=== PATIENT | female | born 1980 | race Caucasian/White ===

== ENCOUNTER 2017-07-26 18:45 | Emergency (ER) | payer BC ==
[2017-07-26 20:10] LABS: APPEARANCE CLEAR (CLEAR); BILIRUBIN NEGATIVE (NEGATIVE); COLOR YELLOW (YELLOW); GLUCOSE NEGATIVE (NEGATIVE); KETONE NEGATIVE (NEGATIVE); LEUKOCYTE ESTERASE NEGATIVE (NEGATIVE); NITRITE NEGATIVE (NEGATIVE); PROTEIN NEGATIVE (NEGATIVE); SPECIFIC GRAVITY 1.015 (1.005-1.020); UROBILINOGEN NORMAL (NORMAL)
[2017-07-26 20:12] LABS: UDS - AMPHET POSITIVE QUAL (NEGATIVE); UDS - BARB NEGATIVE QUAL (NEGATIVE); UDS - BENZO POSITIVE QUAL (NEGATIVE); UDS - COCAINE NEGATIVE QUAL (NEGATIVE); UDS - METH NEGATIVE QUAL (NEGATIVE); UDS - OPIATE NEGATIVE QUAL (NEGATIVE); UDS - PCP NEGATIVE QUAL (NEGATIVE); UDS - THC NEGATIVE QUAL (NEGATIVE)
[2017-07-26 21:35] LABS: HEMATOCRIT 34.8 % (36.0-48.0); HEMOGLOBIN 11.8 g/dL (12-16); MCH 31.5 pg (26.0-34.0); MCHC 33.9 g/dL (31.0-37.0); MCV 92.8 fL (80.0-100.0); MEAN PLATELET VOLUME 10.6 fL (7.4-10.4); PLATELET COUNT 193 10x3/uL (130-400); RBC 3.75 10x6/uL (4.00-5.40); RDW 16.8 % (11.5-14.5); WBC 4.7 10x3/uL (4.8-10.8)
[2017-07-26 21:44] LABS: HCG SERUM NEGATIVE (NEGATIVE)
[2017-07-26 21:46] LABS: ALKALINE PHOSPHATASE 119 U/L (46-116); ALT (SGPT) 101 U/L (10-68); BILIRUBIN - TOTAL 1.06 mg/dL (0.2-1.3); CALC OSMOLALITY 277 mosm/kg (275-300); CALCIUM 8.8 mg/dL (8.5-10.1); CARBON DIOXIDE 32.7 mmol/L (21.0-32.0); CHLORIDE - SERUM 106 mmol/L (98-107); CREATININE - SERUM 0.7 mg/dL (0.6-1.3); GLUCOSE 83 mg/dL (74-106); LIPASE 63 U/L (73-393); POTASSIUM - SERUM 4.9 mmol/L (3.5-5.1); PROTEIN - SERUM 6.8 g/dL (6.4-8.2); SODIUM 141 mmol/L (136-145); UREA NITROGEN 7 mg/dL (7-18); eGFR NON AFRICAN AMERICAN > 90 mL/min (90-120)
[2017-07-26 21:59] LABS: EOSINOPHILS 4 % (0-7); LYMPHOCYTES 56 % (15-50); NEUTROPHILS 40 % (40-80)
[2017-07-26 22:00] LABS: PLATELET ESTIMATE NORMAL
== END 2017-07-26 22:58 | disposition home or self-care (01) ==
LOC: D.ER 18:45
PROVIDERS: Physician Assistant
DX: R60.0 Localized edema (principal); R79.89 Other specified abnormal findings of blood chemistry; L98.1 Factitial dermatitis; F22 Delusional disorders; F17.200 Nicotine dependence, unspecified, uncomplicated

== ENCOUNTER 2019-01-23 15:26 | Emergency (ER) | payer MEDICAID ==
[~2019-01-23] VITALS: Ht 157.5 cm; Wt 54.5 kg
[2019-01-23 15:27] VITALS: BP 107/66; Ht 157.5 cm; Wt 54.5 kg
[2019-01-23 16:27] LABS: HCG SERUM NEGATIVE (NEGATIVE)
[2019-01-23 16:32] LABS: ALBUMIN 3.7 g/dL (3.4-5.0); ALKALINE PHOSPHATASE 54 U/L (46-116); ALT (SGPT) 21 U/L (10-68); BILIRUBIN - TOTAL 0.35 mg/dL (0.2-1.3); CALC OSMOLALITY 280 mosm/kg (275-300); CALCIUM 8.4 mg/dL (8.5-10.1); CARBON DIOXIDE 28.9 mmol/L (21.0-32.0); CHLORIDE - SERUM 104 mmol/L (98-107); CREATININE - SERUM 0.7 mg/dL (0.6-1.3); GLUCOSE 82 mg/dL (74-106); POTASSIUM - SERUM 3.3 mmol/L (3.5-5.1); PROTEIN - SERUM 7.3 g/dL (6.4-8.2); SODIUM 142 mmol/L (136-145); UREA NITROGEN 11 mg/dL (7-18); eGFR NON AFRICAN AMERICAN > 90 mL/min (90-120)
[2019-01-23 16:39] LABS: UDS - AMPHET POSITIVE QUAL (NEGATIVE); UDS - BARB NEGATIVE QUAL (NEGATIVE); UDS - BENZO NEGATIVE QUAL (NEGATIVE); UDS - COCAINE NEGATIVE QUAL (NEGATIVE); UDS - OPIATE NEGATIVE QUAL (NEGATIVE); UDS - PCP NEGATIVE QUAL (NEGATIVE); UDS - THC NEGATIVE QUAL (NEGATIVE)
[2019-01-23 17:13] LABS: APPEARANCE CLEAR (CLEAR); COLOR YELLOW (YELLOW)
[2019-01-23 17:14] LABS: BILIRUBIN NEGATIVE (NEGATIVE); GLUCOSE NEGATIVE (NEGATIVE); KETONE NEGATIVE (NEGATIVE); NITRITE POSITIVE (NEGATIVE); PROTEIN NEGATIVE (NEGATIVE); UROBILINOGEN NORMAL (NORMAL)
[2019-01-23 17:17] LABS: EPITHELIAL CELLS 0-5 /hpf (0-5); RED CELLS - URINE 0-5 /hpf (0-5)
[2019-01-23 17:18] LABS: BACTERIA MANY /hpf (NONE SEEN)
[2019-01-23 17:27] LABS: BASOPHILS 0.3 % (0-2); EOSINOPHILS 0.5 % (0-7); HEMATOCRIT 33.6 % (36.0-48.0); HEMOGLOBIN 11.5 g/dL (12-16); LYMPHOCYTES 48.4 % (15-50); MCH 29.3 pg (26.0-34.0); MCHC 34.2 g/dL (31.0-37.0); MCV 85.7 fL (80.0-100.0); MEAN PLATELET VOLUME 11.1 fL (7.4-10.4); MONOCYTES 12.1 % (2-11); NEUTROPHILS 38.7 % (40-80); PLATELET COUNT 209 10x3/uL (130-400); RBC 3.92 10x6/uL (4.00-5.40); RDW 13.8 % (11.5-14.5); WBC 3.6 10x3/uL (4.8-10.8)
[2019-01-23] MEDS ORDERED: MACROBID100 MG PO (18:05)
== END 2019-01-23 18:39 | disposition home or self-care (01) ==
LOC: D.ER → EDBD 15:26 → D.ER 18:39
PROVIDERS: Family Medicine
DX: F19.10 Other psychoactive substance abuse, uncomplicated (principal); F41.9 Anxiety disorder, unspecified; N39.0 Urinary tract infection, site not specified

== ENCOUNTER 2019-01-23 21:16 | Emergency (ER) | payer MEDICAID ==
[2019-01-23 15:27] VITALS: BMI 22.0
[~2019-01-23 21:16] MED LIST: MACROBID100 MG PO
== END 2019-01-23 21:38 | disposition home or self-care (01) ==
LOC: D.ER → EDBD 21:16 → D.ER 21:16
DX: F19.10 Other psychoactive substance abuse, uncomplicated (principal); F41.9 Anxiety disorder, unspecified; N39.0 Urinary tract infection, site not specified

== ENCOUNTER 2019-01-24 12:03 | Emergency (ER) | payer MEDICAID ==
[~2019-01-24] VITALS: Ht 157.5 cm; Wt 77.3 kg
[2019-01-24 12:05] VITALS: Ht 157.5 cm; Wt 77.3 kg
[2019-01-24 13:42] LABS: HEMATOCRIT 35.3 % (36.0-48.0); HEMOGLOBIN 12.1 g/dL (12-16); MCH 29.2 pg (26.0-34.0); MCHC 34.3 g/dL (31.0-37.0); MCV 85.3 fL (80.0-100.0); MEAN PLATELET VOLUME 10.8 fL (7.4-10.4); PLATELET COUNT 191 10x3/uL (130-400); RBC 4.14 10x6/uL (4.00-5.40); RDW 13.8 % (11.5-14.5)
[2019-01-24 13:47] LABS: APPEARANCE HAZY (CLEAR); BILIRUBIN NEGATIVE (NEGATIVE); COLOR YELLOW (YELLOW); GLUCOSE NEGATIVE (NEGATIVE); KETONE NEGATIVE (NEGATIVE); NITRITE POSITIVE (NEGATIVE); PROTEIN TRACE mg/dL (NEGATIVE); UROBILINOGEN NORMAL (NORMAL)
[2019-01-24 13:49] LABS: AMORPHOUS SEDIMENT <1+ /lpf (NONE SEEN); BACTERIA MANY /hpf (NONE SEEN); HCG URINE NEGATIVE (NEGATIVE); MUCUS <1+ /lpf (NONE SEEN); UDS - AMPHET POSITIVE QUAL (NEGATIVE); UDS - BARB NEGATIVE QUAL (NEGATIVE); UDS - BENZO NEGATIVE QUAL (NEGATIVE); UDS - COCAINE NEGATIVE QUAL (NEGATIVE); UDS - OPIATE NEGATIVE QUAL (NEGATIVE); UDS - PCP NEGATIVE QUAL (NEGATIVE); UDS - THC NEGATIVE QUAL (NEGATIVE)
[2019-01-24 13:50] LABS: WBC 2.6 10x3/uL (4.8-10.8)
[2019-01-24 13:55] LABS: ALBUMIN 3.3 g/dL (3.4-5.0); ALKALINE PHOSPHATASE 56 U/L (46-116); ALT (SGPT) 20 U/L (10-68); BILIRUBIN - TOTAL 0.33 mg/dL (0.2-1.3); CALC OSMOLALITY 280 mosm/kg (275-300); CALCIUM 8.3 mg/dL (8.5-10.1); CARBON DIOXIDE 24.6 mmol/L (21.0-32.0); CHLORIDE - SERUM 106 mmol/L (98-107); CREATININE - SERUM 0.7 mg/dL (0.6-1.3); GLUCOSE 87 mg/dL (74-106); PROTEIN - SERUM 7.2 g/dL (6.4-8.2); SODIUM 142 mmol/L (136-145); UREA NITROGEN 9 mg/dL (7-18); eGFR NON AFRICAN AMERICAN > 90 mL/min (90-120)
[2019-01-24 14:18] LABS: BASOPHILS 1 % (0-2); EOSINOPHILS 1 % (0-7); LYMPHOCYTES 44 % (15-50); MONOCYTES 6 % (2-11); NEUTROPHILS 42 % (40-80); PLATELET ESTIMATE NORMAL
[2019-01-24 16:59] VITALS: BP 127/74
== END 2019-01-24 17:49 ==
LOC: D.ER → EDBD 12:03 → D.ER 12:03
PROVIDERS: Family Medicine
DX: F29 Unspecified psychosis not due to a substance or known physiological condition (principal); F15.10 Other stimulant abuse, uncomplicated; N39.0 Urinary tract infection, site not specified

== ENCOUNTER 2019-10-07 11:40 | Observation (INO) | payer MEDICAID ==
[~2019-10-07] VITALS: Ht 157.5 cm; Wt 59.7 kg
[2019-10-07] VITALS (8 sets, daily range): BP systolic 101–114; BP diastolic 60–76; Ht 157.5 cm; Wt 59.7 kg
--- NOTE | 2019-10-07 11:57 | NUR ---
UNABLE TO ASSESS FOR SI/HI AT THIS TIME PT IS PSYCHOTIC. PT VERY SEXUALLY INAPPROPRIATE WITH WORDS AND ACTIONS.
[2019-10-07 12:15] LABS: HCG URINE NEGATIVE (NEGATIVE)
--- NOTE | 2019-10-07 12:15 | NUR ---
PT RESTING QUIETLY AT THIS TIME. CONTINUES PULSE OX APPLIED TO PT. CURRENTLY 98% ON ROOM AIR. WILL CONTINUE TO MONITOR.
[2019-10-07 12:16] LABS: UDS - AMPHET POSITIVE QUAL (NEGATIVE); UDS - BARB NEGATIVE QUAL (NEGATIVE); UDS - BENZO NEGATIVE QUAL (NEGATIVE); UDS - COCAINE NEGATIVE QUAL (NEGATIVE); UDS - OPIATE NEGATIVE QUAL (NEGATIVE); UDS - PCP NEGATIVE QUAL (NEGATIVE); UDS - THC NEGATIVE QUAL (NEGATIVE)
[2019-10-07 12:28] LABS: APPEARANCE SL CLDY (CLEAR); BACTERIA MANY /hpf (NEGATIVE); BILIRUBIN NEGATIVE (NEGATIVE); COLOR YELLOW (YELLOW); EPITHELIAL CELLS 0-5 /hpf (0-5); GLUCOSE NEGATIVE (NEGATIVE); KETONE SMALL mg/dL (NEGATIVE); MUCUS <1+ /lpf (NONE SEEN); NITRITE POSITIVE (NEGATIVE); PROTEIN 1+ mg/dL (NEGATIVE); RED CELLS - URINE NONE SEEN /hpf (0-5); SPECIFIC GRAVITY 1.025 (1.005-1.020); UROBILINOGEN NORMAL (NORMAL); WHITE CELLS - URINE 0-5 /hpf (NEGATIVE)
[2019-10-07 13:05] LABS: BASOPHILS 0.2 % (0-2); EOSINOPHILS 0.4 % (0-7); HEMATOCRIT 32.5 % (36.0-48.0); HEMOGLOBIN 10.5 g/dL (12-16); IMMATURE GRANULOCYTES 0.2 % (0-5); LYMPHOCYTES 38.5 % (15-50); MCH 28.4 pg (26.0-34.0); MCHC 32.3 g/dL (31.0-37.0); MCV 87.8 fL (80.0-100.0); MEAN PLATELET VOLUME 10.1 fL (7.4-10.4); MONOCYTES 7.9 % (2-11); NEUTROPHILS 52.8 % (40-80); PLATELET COUNT 203 10x3/uL (130-400); RDW 14.2 % (11.5-14.5); WBC 4.5 10x3/uL (4.8-10.8)
[2019-10-07 13:14] LABS: CALC OSMOLALITY 280 mosm/kg (275-300); CALCIUM 8.4 mg/dL (8.5-10.1); CHLORIDE - SERUM 108 mmol/L (98-107); CREATININE - SERUM 0.7 mg/dL (0.6-1.3); GLUCOSE 80 mg/dL (74-106); POTASSIUM - SERUM 3.7 mmol/L (3.5-5.1); SODIUM 142 mmol/L (136-145); UREA NITROGEN 9 mg/dL (7-18); eGFR NON AFRICAN AMERICAN > 90 mL/min (90-120)
[2019-10-07 13:20] LABS: ACETAMINOPHEN 0.7 ug/mL (10.0-30.0); ALBUMIN 3.4 g/dL (3.4-5.0); ALKALINE PHOSPHATASE 51 U/L (46-116); ALT (SGPT) 20 U/L (10-68); BILIRUBIN - TOTAL 0.61 mg/dL (0.2-1.3); MAGNESIUM - SERUM 1.8 mg/dL (1.8-2.4); PROTEIN - SERUM 6.7 g/dL (6.4-8.2)
--- NOTE | 2019-10-07 15:20 | NUR ---
PT CONTINUES LYING QUIETLY WITH EYES CLOSED. VSS. WILL CONTINUE TO MONITOR.
--- NOTE | 2019-10-07 16:43 | NUR ---
PT CONTINUES LYING QUIETLY BREATHING EUPNEIC. VSS. WILL CONTINUE TO MONITOR.
--- NOTE | 2019-10-07 18:13 | NUR ---
RECEIVED FROM ER PER STRETCHER. PATIENT TRANSFERED SELF TO BED ON REQUEST. NODES HEAD TO QUESTIONS BUT DOES NOT ANSWER QUESTIONS. SKIN WARM AND DRY. SALINE LOCK IV LEFT AC. MONITOR SR.
--- NOTE | 2019-10-07 19:15 | NUR ---
REPORT RECEIVED, PT CONFUSED AND DISORIENTED TO PERSON, PLACE, TIME, AND SITUATION. PT AGITATED ON VERBAL STIMULATION, ON ROOM AIR. VITALS STABLE, PIV TO LT AC INFUSING, SEE FLOWSHEET. ASSESSMENT COMPLETED, SEE FLOWSHEET. NO ACUTE DISTRESS NOTED AT THIS TIME.
--- NOTE | 2019-10-07 21:00 | NUR ---
PT LAYING ON STOMACH, DISORIENTED TO PERSON, PLACE, TIME, AND SITUATION. PT GRUMBLES WHEN AROUSED, FOLLOWS BASIC COMMANDS, BUT QUICKLY FALLS BACK ASLEEP. WILL CONTINUE TO MONITOR.
--- NOTE | 2019-10-07 21:41 | NUR ---
PT ORIENTED TO PLACE, TIME, AND SELF, DISORIENTED TO SITUATION.
--- NOTE | 2019-10-07 23:00 | NUR ---
PT RESTING IN BED, DISORIENTED TO SITUATION ONLY, QUICKLY FALLS ASLEEP SOON AFTER AROUSING TO VERBAL STIMULI. NO DISTRESS NOTED AT THIS TIME.
[2019-10-08] VITALS (16 sets, daily range): BP systolic 92–123; BP diastolic 57–78
--- NOTE | 2019-10-08 01:00 | NUR ---
PT AROUSES EASILY TO VERBAL STIMULI, STATES SHE IS "FEELING BETTER," BUT FALLS ASLEEP SHORTLY AFTER. FOLLOWS COMMANDS, DISORIENTED TO SITUATION. REORIENTED NEEDED, WILL CONTINUE TO MONITOR.
--- NOTE | 2019-10-08 03:00 | NUR ---
PT RESTING IN BED, NO ACUTE DISTRESS NOTED. DISORIENTED TO SITUATION, REORIENTED NEEDED. WILL CONTINUE TO MONITOR.
[2019-10-08 04:12] LABS: HEMATOCRIT 32.2 % (36.0-48.0); HEMOGLOBIN 10.6 g/dL (12-16); MCHC 32.9 g/dL (31.0-37.0); MEAN PLATELET VOLUME 10.6 fL (7.4-10.4); PLATELET COUNT 217 10x3/uL (130-400); RBC 3.66 10x6/uL (4.00-5.40); RDW 14.4 % (11.5-14.5)
[2019-10-08 04:35] LABS: WBC 3.2 10x3/uL (4.8-10.8)
[2019-10-08 04:42] LABS: ALBUMIN 2.9 g/dL (3.4-5.0); ALKALINE PHOSPHATASE 44 U/L (46-116); ALT (SGPT) 20 U/L (10-68); BILIRUBIN - TOTAL 0.76 mg/dL (0.2-1.3); CALC OSMOLALITY 276 mosm/kg (275-300); CALCIUM 7.7 mg/dL (8.5-10.1); CARBON DIOXIDE 25.5 mmol/L (21.0-32.0); CHLORIDE - SERUM 109 mmol/L (98-107); CREATININE - SERUM 0.6 mg/dL (0.6-1.3); POTASSIUM - SERUM 3.3 mmol/L (3.5-5.1); PROTEIN - SERUM 6.2 g/dL (6.4-8.2); SODIUM 141 mmol/L (136-145); UREA NITROGEN 8 mg/dL (7-18); eGFR NON AFRICAN AMERICAN > 90 mL/min (90-120)
[2019-10-08 04:43] LABS: GLUCOSE 61 mg/dL (74-106)
[2019-10-08 05:04] LABS: EOSINOPHILS 3 % (0-7); LYMPHOCYTES 57 % (15-50); MONOCYTES 5 % (2-11); NEUTROPHILS 34 % (40-80); PLATELET ESTIMATE NORMAL
--- NOTE | 2019-10-08 07:15 | NUR ---
REPORT RECEIVED. PT RESTING QUIETLY ON STOMACH AT THIS TIME. VSS. IV TO LEFT AC WITH NS INFUSING AT 125ML/HR. HEAD TO TOE ASSESSMENT COMPLETED. WILL CONTINUE TO MONITOR.
--- NOTE | 2019-10-08 09:30 | NUR ---
PT RESTING QUIETLY. FOLLOWS COMMANDS. ORIENTED. VSS. WILL CONTINUE TO MONITOR. NO NEEDS AT THIS TIME.
--- NOTE | 2019-10-08 11:30 | NUR ---
DR SALVADORS IN WITH PT AT THIS TIME. VSS.
--- NOTE | 2019-10-08 13:14 | NUR ---
PT VOIDED IN BSC. NOW EATING LUNCH. VSS. NO OTHER NEEDS AT THIS TIME. WILL CONTINUE TO MONITOR.
--- NOTE | 2019-10-08 15:08 | NUR ---
DR CLARK IN WITH PT.
--- NOTE | 2019-10-08 15:32 | NUR ---
SPOKE WITH DR GARCIA ABOUT GETTING DISCHARGE ORDERS. SAID HE WOULD WORK ON IT.
--- NOTE | 2019-10-09 14:37 | CN ---
PATIENT NAME:TIGIST DICKINSON MEDICAL RECORD: [id number] : 84 LOCATION:[id number] ADMIT DATE: 10/07/19 ACCOUNT: [id number] CONSULTING PHYSICIAN: AYDEN CLARK MD REFERRING PHYSICIAN: RADHA YODER MD DATE OF CONSULTATION: 10/08/2019 IDENTIFYING DATA: The patient is 39 years old and she is admitted to the hospital on a voluntary basis. CHIEF COMPLAINT: Psychosis. HISTORY OF PRESENT ILLNESS: The patient was brought to the Emergency Room, agitated, delusional, psychotic, and was found to have methamphetamine in her system. She was medicated in the Emergency Room and admitted to the intensive care unit for observation and that is the location that I see her in. She is sleepy, but arousable and she answers my questions. She is no longer having any psychotic symptoms. She is fully oriented. She has a home and actually is employed. She tells me that she uses methamphetamine on an episodic basis and does not feel that she needs to be transferred to a residential program for substance abuse. ASSESSMENT: Methamphetamine abuse. PLAN: The patient is not acutely dangerous. She is not suicidal, homicidal, or psychotic. She is sleepy. This is the normal course of withdrawal from methamphetamines in most cases. I think allowing her to sleep for the next 12 hours will result in her being refreshed and basically back to normal. I do not think she needs inpatient psychiatric care. She clearly and most definitely needs substance abuse treatment, but she is not wanting it at this point at least. I would refer her to outpatient Narcotics Anonymous. Hopefully, she will take advantage of that. Her long-term prognosis is entirely contingent upon abstinence from methamphetamine and other drugs. TRANSINT:[id number] Voice Confirmation ID: [id number] DOCUMENT ID: [id number] AYDEN CLARK MD at [id number] CC: [id number] DICTATION DATE: 10/08/19 1525 PHOTOCOPIER TECHNICIAN: 10/08/19 1542 DIS IN 10/08/19 [facility] [address] [place] [address]
== END 2019-10-08 18:20 | disposition home or self-care (01) ==
LOC: D.ER 11:40 → D.ICU 16:41 → OBSVTIME 17:01 → D.ICU 10-08 18:20
PROVIDERS: Family Medicine; ADMIT Family Medicine Adult Medicine; ATTEND Family Medicine Adult Medicine
DX: T43.621A Poisoning by amphetamines, accidental (unintentional), initial encounter (principal); F15.129 Other stimulant abuse with intoxication, unspecified; G93.41 Metabolic encephalopathy; D64.9 Anemia, unspecified; N39.0 Urinary tract infection, site not specified